=== PATIENT | female | born 2005 | race Two or more races ===

== ENCOUNTER 2024-02-19 17:04 | Emergency (ER) | payer OTHER ==
[~2024-02-19] VITALS: Ht 167.6 cm; Wt 65.8 kg
[2024-02-19] MEDS ORDERED: ORPHENADRINE CITRATE 30 MG/ML AMPUL IM ONE (18:15)
[2024-02-19] MEDS ORDERED: KETOROLAC TROMETHAMINE 60 MG VIAL IM ONE (18:15)
[2024-02-19] MEDS ORDERED: IBU800 MG PO (19:26)
[2024-02-19] MEDS ORDERED: NORFLEX100MG PO (19:26)
== END 2024-02-19 19:34 ==
LOC: ER 17:06 → EMR PED 19:20 → ER 19:20 → EMR PED 19:34
DX: M62.838 Other muscle spasm (principal)

== ENCOUNTER 2024-03-01 11:45 | Outpatient (CLI) | payer OTHER ==
[~2024-03-01 11:45] MED LIST: IBU800 MG PO; NORFLEX100MG PO
== END 2024-03-01 11:57 | disposition home or self-care (01) ==
LOC: RAD 11:45
PROVIDERS: ATTEND Physical Medicine & Rehabilitation
DX: M54.50 Low back pain, unspecified (principal)